=== PATIENT | female | born 1985 ===

== ENCOUNTER 2017-11-04 09:36 | Emergency (ER) | payer OTHER ==
[2017-11-04 09:46] VITALS: BMI 27.9
[2017-11-04 09:47] VITALS: BP 131/63; PULSE 66; RESP 16; TEMP 98.9
--- NOTE | 2017-11-04 10:12 | ED PDOC ---
HPI: General Adult Time Seen by Provider: 11/04/17 09:56 Chief Complaint (Nursing): Chest Pain History Per: Patient Onset/Duration Of Symptoms: Days (6) Current Symptoms Are (Timing): Still Present Severity: Mild Pain Scale Rating Of: 2 Additional Complaint(s): Left breast pain over past week. H/o bilat breast implants, silicone in audor in 2007. No trauma. No fever. Past Medical History Vital Signs: Last Vital Signs Temp 98.9 F 11/04/17 09:46 Pulse 66 11/04/17 09:46 Resp 16 11/04/17 09:46 BP 131/63 11/04/17 09:46 Pulse Ox 100 11/04/17 11:04 - Medical History PMH: No Chronic Diseases - Surgical History Other surgeries: Breast implants - Family History Family History: States: Unknown Family Hx - Home Medications Home Medications: Ambulatory Orders Medication Instructions Recorded Naproxen [Naprosyn] 500 mg PO Q12H #20 tab 11/04/17 Non-Formulary 1 ea .ROUTE Q6 #1 ea 11/04/17 Non-Formulary 1 ea .ROUTE Q6 #1 ea 11/04/17 - Allergies Allergies/Adverse Reactions: Allergies Allergy/AdvReac Type Severity Reaction Status Date / Time No Known Allergies Allergy Verified 11/04/17 09:48 Review of Systems Constitutional: Positive for: Chills Cardiovascular: Positive for: Chest Pain Respiratory: Negative for: Cough, Shortness of Breath Physical Exam - Physical Exam Appears: Positive for: Non-toxic, No Acute Distress Skin: Positive for: Normal Color, Warm, DRY Cardiovascular/Chest: Positive for: Regular Rate, Rhythm, Other (Breasts, left no erythema, no dimmpling, no masses, no lymphadenopathy. Implant appears intact. Right, no erythema, no dimpling, no masses, no lymphadenopathy. Implant appears intact.) Respiratory: Positive for: Normal Breath Sounds - Laboratory Results Result Diagrams: 11/04/17 10:54 - ECG O2 Sat by Pulse Oximetry: 100 Disposition - Clinical Impression Clinical Impression: Breast pain - Patient ED Disposition Is Patient to be Admitted: No Counseled Patient/Family Regarding: Studies Performed, Diagnosis, Need For Followup, Rx Given - Disposition Referrals: [facility] [Outside] Disposition: Routine/Home Disposition Time: 11:02 Condition: FAIR Prescriptions: Naproxen [Naprosyn] 500 mg PO Q12H #20 tab Non-Formulary 1 ea .ROUTE Q6 #1 ea Non-Formulary 1 ea .ROUTE Q6 #1 ea Instructions: Breast Self Exam for Women (ED) Forms: [facility] (Singaporean) Print Language: COLOMBIAN
[2017-11-04 11:02] LABS: BASO # 0.1 K/uL (0.0-0.2); BASO % 1.1 % (0.0-2.0); EOS # 0.1 K/uL (0.0-0.7); EOS % 1.4 % (0.0-4.0); LYMPH # 2.3 K/uL (1.0-4.3); LYMPH % 34.3 % (20.0-40.0); MEAN CORPUSCULAR HEMOGLOBIN 28.8 pg (27.0-31.0); MEAN CORPUSCULAR HGB CONC 33.2 g/dL (33.0-37.0); MEAN PLATELET VOLUME 9.1 fl (7.2-11.7); MONO # 0.5 K/uL (0.0-0.8); MONO % 6.8 % (0.0-10.0); NEUT # 3.8 K/uL (1.8-7.0); NEUT % 56.4 % (50.0-75.0); NRBC % 0.1 % (0.0-0.0); RBC 4.52 Mil/uL (3.80-5.20); RED CELL DISTRIBUTION WIDTH 13.5 % (11.5-14.5); WHITE BLOOD COUNT 6.8 K/uL (4.8-10.8)
[2017-11-04 11:47] VITALS: O2SAT 98
== END 2017-11-04 11:47 | disposition home or self-care (01) ==
LOC: H.ER 09:36
DX: N64.4 Mastodynia (principal); Z98.82 Breast implant status

== ENCOUNTER 2018-11-29 15:01 | Emergency (ER) | payer SELFPAY ==
[2018-11-29 15:01] VITALS: BMI 27.9
[2018-11-29 15:58] VITALS: RESP 18; TEMP 98.2
--- NOTE | 2018-11-29 17:34 | ED PDOC ---
Lower Extremity Pain/Injury Time Seen by Provider: 11/29/18 17:15 Chief Complaint (Nursing): Lower Extremity Problem/Injury Chief Complaint (Provider): left foot pain and swelling History Per: Patient History/Exam Limitations: no limitations Onset/Duration Of Symptoms: Days (x12) Current Symptoms Are (Timing): Still Present Additional Complaint(s): Elke Moffett is a 33 year old female, with no significant past medical history, who presents to the emergency department complaining of left foot pain and swelling onset x2 weeks ago. Patient states she works on her feet a lot and the pain started after she finished a x10 hr shift. She describes the pain as a stabbing sensation and rates it an 8/10. She took Naproxen 500mg at 09:00 this morning. She denies any fever, chills, falls, injuries, weakness/numbness, or other medical complaints. PMD: Clinic, Dr. Peña Past Medical History Reviewed: Historical Data, Nursing Documentation, Vital Signs Vital Signs: Last Vital Signs Temp 98.2 F 11/29/18 15:56 Pulse 56 L 11/29/18 15:56 Resp 18 11/29/18 15:56 BP 123/74 11/29/18 15:56 Pulse Ox 99 11/29/18 15:56 - Medical History PMH: No Chronic Diseases - Surgical History Surgical History: No Surg Hx - Family History Family History: States: Unknown Family Hx - Social History Current smoker - smoking cessation education provided: No Alcohol: None Drugs: Denies - Home Medications Home Medications: Ambulatory Orders Medication Instructions Recorded Naproxen [Naprosyn] 500 mg PO Q12H #20 tab 11/04/17 RX: Non-Formulary 1 ea .ROUTE Q6 #1 ea 11/04/17 RX: Non-Formulary 1 ea .ROUTE Q6 #1 ea 11/04/17 Acetaminophen [Acetaminophen 8 650 mg PO Q8 PRN #21 tablet.er 11/29/18 Hour] RX: Naproxen 500 mg PO BID PRN #20 tab 11/29/18 - Allergies Allergies/Adverse Reactions: Allergies Allergy/AdvReac Type Severity Reaction Status Date / Time No Known Allergies Allergy Verified 11/29/18 15:56 Review of Systems ROS Statement: Except As Marked, All Systems Reviewed And Found Negative Constitutional: Negative for: Fever, Chills Musculoskeletal: Positive for: Foot Pain (left pain and swelling) Neurological: Negative for: Weakness, Numbness Physical Exam - Reviewed Nursing Documentation Reviewed: Yes Vital Signs Reviewed: Yes - Physical Exam Comments: GENERAL APPEARANCE: Patient is awake, alert, oriented x 3, in no acute distress. Resting comfortably. SKIN: Warm, dry; (-) cyanosis. NECK: Supple, FROM ENT: Mucus membranes moist. Airway patent, (-) stridor. LOWER EXTREMITY: (+) Mild edema to lateral mid and forefoot. (+) Diffuse tenderness to 3rd- 5th metatarsals, (-) erythema or ecchymosis (-) skin break. (+) Full ROM of ankle, (-) calf tenderness, erythema, or edema (-) palpable cord. Achilles tendon intact and nontender. Remainder of lower extremity: (-) injury. (+) Sensation intact, (+) Capillary refill < 2sec. CARDIOVASCULAR: (+) distal pulse. NEUROLOGIC: (+) distal sensation. (+) Steady gait in the ED. Speech: clear. (-) facial asymmetry. Strength and tone good. - Laboratory Results Urine POC: Negative - ECG O2 Sat by Pulse Oximetry: 99 (RA) Pulse Ox Interpretation: Normal Medical Decision Making Medical Decision Making: Time: 17:15 Initial Impression: Acute foot pain and swelling Initial Plan: --Toradol 30 mg IM --Foot left 3 views routine [RAD] --Reevaluation 1900 Foot XR: (-) fracture (-) acute disease as read by Monica BIRCH Alex bandage applied to foot by Monica BIRCH. NV intact after placement. Patient declined crutches. RICE encouraged. On re-evaluation, patient reports improvement of symptoms. On exam, patient remains AAOx3, in no acute distress. Vitals stable. Lab/Diagnostic results d/w the patient in great detail. Diagnosis of acute foot pain/swelling d/w the patient. Based on history, exam and diagnostic results, plan will be for outpatient follow up with PMD/podiatry. Patient instructed to follow-up with pmd / referral provided / the clinic in 1- 2 days without fail. Advised to take medication as prescribed. Return to the emergency room at any time for any new or worsening symptoms. Patient states she fully agrees with and understands discharge instructions. States that she agrees with the plan and disposition. Verbalized and repeated discharge instructions and plan. I have given the patient opportunity to ask any additional questions. Scribe Attestation: Documented by Lalo Jimenez, acting as a scribe for Dominique Anderson PA-C. Provider Scribe Attestation: All medical record entries made by the Scribe were at my direction and personally dictated by me. I have reviewed the chart and agree that the record accurately reflects my personal performance of the history, physical exam, medical decision making, and the department course for this patient. I have also personally directed, reviewed, and agree with the discharge instructions and disposition. Disposition - Clinical Impression Clinical Impression: Foot pain, left, Edema of left foot, Sprain of foot, left - Patient ED Disposition Is Patient to be Admitted: No Counseled Patient/Family Regarding: Studies Performed, Diagnosis, Need For Followup, Rx Given - Disposition Referrals: Amanda Peña MD [Provisional Staff] - Podiatry Clinic [Outside] Disposition: Routine/Home Disposition Time: 19:05 Condition: STABLE Additional Instructions: La atencin mdica de emergencia que recibi hoy se dirigi a ila sntomas agudos. Si le recetaron algn medicamento, llnelo y tmelo segn las indicaciones. Los sntomas pueden tardar varios wilson en resolverse. Regrese al Departamento de Emergencias si ila sntomas empeoran, no mejoran o si tiene otros problemas. Comunquese con shine mdico dentro de 2 wilson para camilo nueva evaluacin y hayden un seguimiento o llame a estefania de los mdicos / clnicas a los que duke sido referido y que figuran en el formulario de Informacin de visita al paciente que se incluye en shine paquete de neil. Lleve todos los documentos que le entregaron al momento del neil junto con todos los medicamentos que est tomando para shine visita de seguimiento. Nuestro tratamiento no puede reemplazar la atencin mdica continua por parte de un proveedor de atencin primaria (PCP) fuera del departamento de emergencias. Prescriptions: Acetaminophen [Acetaminophen 8 Hour] 650 mg PO Q8 PRN #21 tablet.er PRN Reason: Pain, Moderate (4-7) RX: Naproxen 500 mg PO BID PRN #20 tab PRN Reason: Pain, Moderate (4-7) Instructions: Swelling, Muscle and Bone Pain (DC), How to Use an Elastic Bandage, Foot Sprain (DC) Forms: [facility] (Greek) Print Language: DOMINICAN - POA Present On Arrival: None
[2018-11-29 20:04] VITALS: BP 115/80; PULSE 77
[2018-11-29 22:20] VITALS: O2SAT 99
--- NOTE | 2018-11-30 16:37 | RAD ---
Date of service: 11/29/2018 PROCEDURE: Left Foot Radiographs. HISTORY: foot pain/edema, no trauma COMPARISON: None. FINDINGS: BONES: No acute fracture or destructive bony lesion identified. JOINTS: Normal. SOFT TISSUES: Normal. OTHER FINDINGS: None. IMPRESSION: Unremarkable left foot radiographs.
== END 2018-11-29 20:02 | disposition home or self-care (01) ==
LOC: H.ER 15:01
DX: S93.602A Unspecified sprain of left foot, initial encounter (principal); R60.0 Localized edema; X58.XXXA Exposure to other specified factors, initial encounter; Y99.0 Civilian activity done for income or pay
CPT/HCPCS: 73630; 81025; 96372; 99283; J1885